=== PATIENT | male | born 1950 | race Caucasian/White ===

== ENCOUNTER 2016-10-14 16:22 | Emergency (ER) | payer MEDICARE, BC ==
[~2016-10-14] VITALS: Ht 182.9 cm; Wt 100.0 kg
[~2016-10-14 16:22] MED LIST: AUGMENTIN500TAB PO; DICLOXACILL500 MG PO; FLUOROURACIL51 EX; HYDROCO/APAP1 T10 PO; LISINOPRIL10 MG PO; LORTAB 7.5 PO; LORTAB 7.57.5 MG PO; LOTRISONE TOP; METOPROL TAR100 MG; METOPROL TAR100 MG PO; METOPROL TAR50 MG PO; METOPROLOL TART50 MG PO; PANTOPRAZOLE SO40 MG PO; TRAMADOL HCL50 MG PO; TYLENOL # 31 TA1 PO; ZPAK PO
[2016-10-14] MEDS ORDERED: CLOPIDOGREL75 MG PO (17:34)
[2016-10-14] MEDS ORDERED: TAMSULOSIN0.4 MG PO (17:34)
[2016-10-14] MEDS ORDERED: ATORVASTATIN CA20 MG PO (17:34)
[2016-10-14] MEDS ORDERED: ASPIRIN81 MG PO (17:35)
[2016-10-14] MEDS ORDERED: AMLODIPINE5 MG PO (17:35)
[2016-10-14] MEDS ORDERED: CARVEDILOL25 MG PO (17:35)
[2016-10-14 17:42] LABS: HEMATOCRIT 40.1 % (39.0-50.0); HEMOGLOBIN 13.5 g/dl (14.0-18.0); IMMATURE GRANULOCYTES 0.4 % (0.0-1.0); MEAN CELL VOLUME 83.9 fL CALC (80.0-100.0); MEAN CORPUSCULAR HGB 28.2 pG CALC (26.0-32.0); MEAN CORPUSCULAR HGB CONC 33.7 g/L CALC (32.0-36.0); NEUT# 5.65 thou/uL (1.82-7.42); RED BLOOD COUNT 4.78 mill/uL (4.70-6.10); RED CELL DISTRI WIDTH 13.7 % (11.5-15.5)
[2016-10-14 17:55] LABS: INTERNATIONAL NORMALIZED RATIO 1.1 RATIO (0.7-1.3); PROTHROMBIN TIME 11.9 SECONDS (9.0-12.5)
[2016-10-14 18:05] LABS: ALBUMIN 3.6 g/dL (3.2-5.0); ALKALINE PHOSPHATASE 70 u/l (38-126); ANION GAP 14 (6-22 (CALC)); BILIRUBIN, TOTAL 0.8 mg/dL (0.0-1.4); BUN 17 mg/dL (8-23); BUN/CREATININE RATIO 17 (12-20 (CALC)); CALCIUM 8.9 mg/dL (8.4-10.2); CARBON DIOXIDE 24 mmol/l (22-30); CHLORIDE 101 mmol/l (95-108); GFR > 60 ML/MIN (>=60 (CALC)); GFR FOR AFR.AMER. > 60 ML/MIN (>=60 (CALC)); GLUCOSE 130 mg/dL (82-115); POTASSIUM 3.9 mmol/l (3.5-5.1); SGOT/AST 43 u/l (19-48); SGPT/ALT 64 u/l (11-66); SODIUM 135 mmol/l (137-146); TOTAL PROTEIN 6.7 g/dL (6.3-8.2)
[2016-10-14 18:36] LABS: MYOGLOBIN 65 ng/mL (0 - 121)
[2016-10-14 19:30] VITALS: BP 104/71
== END 2016-10-14 19:33 | disposition home or self-care (01) ==
LOC: ED 16:22
PROVIDERS: Emergency Medicine
DX: R06.02 Shortness of breath (principal); R53.1 Weakness; I25.10 Atherosclerotic heart disease of native coronary artery without angina pectoris; I10 Essential (primary) hypertension; I25.2 Old myocardial infarction; Z95.5 Presence of coronary angioplasty implant and graft; R68.83 Chills (without fever); R11.0 Nausea

== ENCOUNTER 2017-03-20 20:37 | Emergency (ER) | payer MEDICARE, BC ==
[~2017-03-20] VITALS: Ht 182.9 cm; Wt 100.4 kg
[~2017-03-20 20:37] MED LIST changes: +AMLODIPINE5 MG PO; +ASPIRIN81 MG PO; +ATORVASTATIN CA20 MG PO; +CARVEDILOL25 MG PO; +CLOPIDOGREL75 MG PO; +TAMSULOSIN0.4 MG PO
[2017-03-20] MEDS ORDERED: KEFLEX500 MG PO (22:47)
[2017-03-20 23:00] VITALS: BP 126/74
== END 2017-03-20 23:00 | disposition left against medical advice (07) ==
LOC: ED 20:37
DX: M79.642 Pain in left hand (principal); S61.032A Puncture wound without foreign body of left thumb without damage to nail, initial encounter; R22.32 Localized swelling, mass and lump, left upper limb; W26.8XXA Contact with other sharp object(s), not elsewhere classified, initial encounter; Y93.9 Activity, unspecified; Y92.009 Unspecified place in unspecified non-institutional (private) residence as the place of occurrence of the external cause

== ENCOUNTER 2020-01-18 18:27 | Emergency (ER) | payer MEDICARE, BC ==
[~2020-01-18] VITALS: Ht 182.9 cm; Wt 102.0 kg
[~2020-01-18 18:27] MED LIST changes: +KEFLEX500 MG PO
[2020-01-18 19:34] VITALS: BP 117/89
== END 2020-01-18 19:43 | disposition home or self-care (01) ==
LOC: ED 18:27
DX: G89.29 Other chronic pain (principal); M25.511 Pain in right shoulder; I10 Essential (primary) hypertension; Z79.891 Long term (current) use of opiate analgesic

== ENCOUNTER 2020-04-10 15:25 | Emergency (ER) | payer MEDICARE, BC ==
[~2020-04-10] VITALS: Ht 182.9 cm; Wt 102.0 kg
[2020-04-10] MEDS ORDERED: KEFLEX500 M1 PO ×3 (16:28→16:50)
[2020-04-10 16:45] VITALS: BP 179/79
== END 2020-04-10 16:54 | disposition home or self-care (01) ==
LOC: ED 15:25
PROC: 0HQLXZZ Repair Left Lower Leg Skin, External Approach (ICD-10-PCS; principal; 2020-04-10)
DX: S81.812A Laceration without foreign body, left lower leg, initial encounter (principal); I10 Essential (primary) hypertension; W22.8XXA Striking against or struck by other objects, initial encounter; Y92.009 Unspecified place in unspecified non-institutional (private) residence as the place of occurrence of the external cause

== ENCOUNTER 2022-08-11 19:02 | Observation (INO) | payer MEDICARE, BC ==
[2022-08-11] VITALS (13 sets, daily range): BP systolic 82–108; BP diastolic 52–67
[~2022-08-11] VITALS: Ht 182.9 cm; Wt 85.8 kg
[~2022-08-11 19:02] MED LIST changes: +KEFLEX500 M1 PO
[2022-08-11 20:09] LABS: BASO% 0.4 % (0-3); EOS% 7.3 % (0-8); HEMATOCRIT 30.4 % (39.0-50.0); HEMOGLOBIN 9.5 g/dl (14.0-18.0); IMMATURE GRANULOCYTES 0.3 % (0.0-5.0); LYMPH% 12.7 % (15-41); MEAN CELL VOLUME 89.9 fL CALC (80.0-100.0); MEAN CORPUSCULAR HGB 28.1 pG CALC (26.0-32.0); MEAN CORPUSCULAR HGB CONC 31.3 g/dL CAL (32.0-36.0); MONO% 9.3 % (2-13); NEUT# 6.37 thou/uL (1.82-7.42); RED BLOOD COUNT 3.38 mill/uL (4.70-6.10); RED CELL DISTRI WIDTH 14.4 % (11.5-15.5)
[2022-08-11 20:21] LABS: BILIRUBIN, TOTAL 0.4 mg/dL (0.2-1.3); CREATININE 1.7 mg/dL (0.7-1.3); POTASSIUM 4.3 mmol/l (3.5-5.1); TOTAL PROTEIN 7.5 g/dL (6.3-8.2)
[2022-08-11] MEDS ORDERED: FUROSEMIDE20 MG PO (21:19)
[2022-08-11] MEDS ORDERED: METFORMIN HCL500 M2 PO (21:19)
[2022-08-11] MEDS ORDERED: SPIRONOLACTONE25 MG PO (21:20)
[2022-08-11] MEDS ORDERED: OXYCODONE20 M1 PO (21:21)
[2022-08-11 21:51] LABS: URINE BILIRUBIN - DIPSTICK NEGATIVE (NEGATIVE); URINE BLOOD DIPSTICK NEGATIVE (NEGATIVE); URINE COLOR YELLOW; URINE GLUCOSE - DIPSTICK NEGATIVE (NEGATIVE); URINE KETONE NEGATIVE (NEGATIVE); URINE LEUK ESTERASE NEGATIVE (NEGATIVE); URINE PH 5.5 (4.5-8.0); URINE PROTEIN - DIPSTICK NEGATIVE (NEG-TRACE); URINE UROBILINOGEN - DIPSTICK 0.2 E.U./dL (0.2)
[2022-08-11 21:53] LABS: URINE NITRITE - DIPSTICK NEGATIVE (Negative)
[2022-08-12 00:12] VITALS: BP 99/63
[2022-08-12 04:00] VITALS: BP 88/72; BP 99/63
[2022-08-12 06:53] VITALS: BP 91/50
[2022-08-12 11:36] VITALS: BP 106/64
[2022-08-12 14:33] VITALS: BP 103/68
[2022-08-12 19:03] VITALS: BP 109/63
[2022-08-13] VITALS (7 sets, daily range): BP systolic 104–117; BP diastolic 56–72
[2022-08-13 05:47] LABS: BASO% 0.1 % (0-3); EOS% 9.9 % (0-8); HEMOGLOBIN 7.8 g/dl (14.0-18.0); IMMATURE GRANULOCYTES 0.3 % (0.0-5.0); LYMPH% 14.2 % (15-41); MEAN CELL VOLUME 90.9 fL CALC (80.0-100.0); MEAN CORPUSCULAR HGB 28.4 pG CALC (26.0-32.0); MEAN CORPUSCULAR HGB CONC 31.2 g/dL CAL (32.0-36.0); MONO% 9.6 % (2-13); NEUT# 4.43 thou/uL (1.82-7.42); NEUT% 65.9 % (42-76); RED BLOOD COUNT 2.75 mill/uL (4.70-6.10); RED CELL DISTRI WIDTH 14.6 % (11.5-15.5)
[2022-08-13 07:07] LABS: ALBUMIN 2.6 g/dL (3.2-5.0); ALKALINE PHOSPHATASE 55 u/l (38-126); ANION GAP 9 (6-22 (CALC)); BUN 14 mg/dL (8-23); BUN/CREATININE RATIO 18 (12-20 (CALC)); CARBON DIOXIDE 21 mmol/l (22-30); CHLORIDE 112 mmol/l (95-108); CREATININE 0.8 mg/dL (0.7-1.3); GFR FOR AFR.AMER. > 60 ML/MIN (>=60 (CALC)); GFR OTHER RACES > 60 ML/MIN (>=60 (CALC)); SGOT/AST 19 u/l (19-48); SODIUM 137 mmol/l (137-146); TOTAL PROTEIN 5.1 g/dL (6.3-8.2)
[2022-08-14] VITALS (8 sets, daily range): BP systolic 101–123; BP diastolic 59–71
[2022-08-14 05:56] LABS: BASO% 0.3 % (0-3); EOS% 7.5 % (0-8); HEMATOCRIT 29.2 % (39.0-50.0); HEMOGLOBIN 9.1 g/dl (14.0-18.0); IMMATURE GRANULOCYTES 0.4 % (0.0-5.0); MEAN CELL VOLUME 91.5 fL CALC (80.0-100.0); MEAN CORPUSCULAR HGB 28.5 pG CALC (26.0-32.0); MEAN CORPUSCULAR HGB CONC 31.2 g/dL CAL (32.0-36.0); MONO% 8.6 % (2-13); NEUT# 7.19 thou/uL (1.82-7.42); NEUT% 73.2 % (42-76); RED BLOOD COUNT 3.19 mill/uL (4.70-6.10); RED CELL DISTRI WIDTH 14.6 % (11.5-15.5)
[2022-08-14 06:30] LABS: ALKALINE PHOSPHATASE 68 u/l (38-126); ANION GAP 11 (6-22 (CALC)); BUN 11 mg/dL (8-23); BUN/CREATININE RATIO 15 (12-20 (CALC)); CARBON DIOXIDE 22 mmol/l (22-30); CHLORIDE 106 mmol/l (95-108); CREATININE 0.7 mg/dL (0.7-1.3); GFR FOR AFR.AMER. > 60 ML/MIN (>=60 (CALC)); GFR OTHER RACES > 60 ML/MIN (>=60 (CALC)); POTASSIUM 3.7 mmol/l (3.5-5.1); SGOT/AST 17 u/l (19-48); SODIUM 136 mmol/l (137-146); TOTAL PROTEIN 6.1 g/dL (6.3-8.2)
[2022-08-14 06:32] LABS: ALBUMIN 3.2 g/dL (3.2-5.0); BILIRUBIN, TOTAL 0.2 mg/dL (0.2-1.3)
== END 2022-08-14 18:08 | disposition home or self-care (01) ==
LOC: ED 19:02 → ED-I 22:40 → ED 22:59 → MS2 23:00
PROVIDERS: Emergency Medicine; ADMIT Internal Medicine; ATTEND Internal Medicine
DX: E86.0 Dehydration (principal); I95.9 Hypotension, unspecified; N17.9 Acute kidney failure, unspecified; I11.0 Hypertensive heart disease with heart failure; I50.9 Heart failure, unspecified; E11.9 Type 2 diabetes mellitus without complications; D64.9 Anemia, unspecified; E78.5 Hyperlipidemia, unspecified; G89.29 Other chronic pain; Z79.891 Long term (current) use of opiate analgesic; Z79.84 Long term (current) use of oral hypoglycemic drugs; Z20.822 Contact with and (suspected) exposure to COVID-19

== ENCOUNTER 2024-03-27 19:12 | Emergency (ER) | payer MEDICARE, BC ==
[2024-03-27] VITALS (8 sets, daily range): BP systolic 118–138; BP diastolic 63–98
[~2024-03-27] VITALS: Ht 182.9 cm; Wt 70.0 kg
[~2024-03-27 19:12] MED LIST changes: +ALDACTONE25 MG PO; +CLOTRIMAZOLE13 EX; +COQ-10100 MG PO; +COREG25 MG PO; +FUROSEMIDE20 MG PO; +METFORMIN HCL500 M2 PO; +METFORMIN500 M2 PO; +MILK THISTLE500 M1 PO; +MUPIROCIN2 % EX; +NITROGLYCERIN0.4 MG; +NORVASC PO; +OXYCODONE20 M1 PO; +PAPAYA100 MG PO; +ROXICODONE15 M1 PO; +SAW PALMETTO1 CAP; +SPIRONOLACTONE25 MG PO; +TAMSULOSIN HCL0.4 MG PO; +TIZANIDINE4 MG PO; +TURMERI1 PO; +VITAMIN D31000 UNI1 PO; +VITAMIN E100 UNI2 PO
[2024-03-27] MEDS ORDERED: CEPHALEXIN MONOHYDRATE 500 MG/CAP PO ONE (19:50)
[2024-03-27] MEDS ORDERED: Diph, Acellular Pertussis, Tet 0.5 ML/VIAL (Tdap) SDV IM ONE (19:50)
[2024-03-27] MEDS ORDERED: NEOMYCIN-BACITRACIN-POLYMYXIN 0.5 GM/PAK PAK TOP ONE (19:50)
[2024-03-27] MEDS ORDERED: KEFLEX500 MG PO (19:53)
== END 2024-03-27 20:58 | disposition home or self-care (01) ==
LOC: ED 19:12
DX: S81.812A Laceration without foreign body, left lower leg, initial encounter (principal); I10 Essential (primary) hypertension; W22.09XA Striking against other stationary object, initial encounter

== ENCOUNTER 2024-06-14 10:13 | Observation (INO) | payer MEDICARE, BC ==
[~2024-06-14] VITALS: Ht 182.9 cm; Wt 85.0 kg
[2024-06-14] MEDS ORDERED: AZITHROMYCIN 250 MG/TAB PO ONE (10:25)
[2024-06-14] MEDS ORDERED: methylPREDNISolone SODIUM SUCC 125 MG/2 ML SDV IM ONE (10:25)
[2024-06-14] MEDS ORDERED: cefTRIAXone SODIUM 2 GM in SODIUM CHLORIDE 0.9% 100 ML IV ONE (10:25)
[2024-06-14] MEDS ORDERED: IPRATROPIUM-Albuterol 0.5MG-2.5MG/3 ML NEB ONE ×3 (10:25→14:35)
[2024-06-14 11:00] LABS: BASO% 0.2 % (0-3); EOS% 0.5 % (0-8); HEMATOCRIT 43.1 % (39.0-50.0); HEMOGLOBIN 13.5 g/dl (14.0-18.0); IMMATURE GRANULOCYTES 0.1 % (0.0-5.0); LYMPH% 6.4 % (15-41); MEAN CORPUSCULAR HGB 25.4 pG CALC (26.0-32.0); MEAN CORPUSCULAR HGB CONC 31.3 g/dL CAL (32.0-36.0); NEUT# 7.15 thou/uL (1.82-7.42); NEUT% 85.8 % (42-76); RED BLOOD COUNT 5.32 mill/uL (4.70-6.10)
[2024-06-14 11:14] LABS: ALBUMIN 4.5 g/dL (3.2-5.0); ALKALINE PHOSPHATASE 81 u/l (38-126); ANION GAP 17 (6-22 (CALC)); BILIRUBIN, TOTAL 0.7 mg/dL (0.2-1.3); BUN 15 mg/dL (8-23); BUN/CREATININE RATIO 18 (12-20 (CALC)); CARBON DIOXIDE 23 mmol/l (22-30); CHLORIDE 98 mmol/l (95-108); CREATININE 0.8 mg/dL (0.7-1.3); ESTIMATED GFR 92 ML/MIN (>=90 (CALC)); POTASSIUM 4.7 mmol/l (3.5-5.1); SGOT/AST 33 u/l (19-48); SODIUM 133 mmol/l (137-146); TOTAL PROTEIN 8.2 g/dL (6.3-8.2)
[2024-06-14] MEDS ORDERED: ONDANSETRON HCl 4 MG/2 ML SDV IV ONE (11:30)
[2024-06-14] MEDS ORDERED: MORPHINE SULFATE 4 MG/ML VIAL IV ONE (11:30)
[2024-06-14] MEDS ORDERED: Iopamidol 370 (Isovue) 76% 100 ML SDV IV ONE (11:30)
[2024-06-14] MEDS ORDERED: ACETAMINOPHEN 325 MG/TAB PO PRN (17:00)
[2024-06-14] MEDS ORDERED: MAGNESIUM HYDROXIDE 30 ML UDC PO PRN (17:00)
--- NOTE | 2024-06-14 17:34 | NUR ---
600ml- urine output
--- NOTE | 2024-06-14 18:03 | NUR ---
report given to Liz badillo
--- NOTE | 2024-06-14 18:04 | NUR ---
report given to Med surg Nurse
--- NOTE | 2024-06-14 18:24 | NUR ---
PT ADMITTED TO [facility] VIA WHEELCHAIR WITH ER STAFF AT SIDE, PT ABLE TO STAND AND TRANSFER TO BED WITH STEADY GAIT, HISTOLOGY ASSISTANT IN PLACE, PT STATES FEELINGMUCH BETTER THAN ON ARRIVAL, ORIENTED TO ROOM, UNIT, CALL WEINSTEIN SYSTEM AND SAFETY MEASURES, VERBALIZES UNDERSTANDING AND COMPLIANCY. CALL WEINSTEIN WITHIN REACH.
[2024-06-14] MEDS ORDERED: IPRATROPIUM-Albuterol 0.5MG-2.5MG/3 ML NEB SCH (19:00)
[2024-06-14 20:14] VITALS: BP 120/66
[2024-06-14] MEDS ORDERED: oxyCODONE HCL 15 MG/TAB PO SCH (20:30)
[2024-06-14] MEDS ORDERED: methylPREDNISolone Sod Succ 40 MG/ML SDV IV SCH (21:00)
[2024-06-14] MEDS ORDERED: ENOXAPARIN SODIUM 40 MG/0.4 ML SYR SC SCH (21:00)
[2024-06-14] MEDS ORDERED: Zaleplon 5 MG/CAP PO SCH (21:00)
--- NOTE | 2024-06-14 22:00 | NUR ---
PT MEDICATED FOR PAIN AND GIVEN SLEEPING MEDICATION. CONTINUES TO WALK AROUND THE ROOM AND PLAY WITH THE TELEMETRY BOX. PT EDUCATED ON NEED FOR REST WHEN SICK.
[2024-06-14] MEDS ORDERED: GUAIFENESIN 200 MG/10 ML UDC PO PRN (23:25)
[2024-06-15 00:08] VITALS: BP 105/65
--- NOTE | 2024-06-15 03:10 | NUR ---
PT AWAKE AND WALKING AROUND IN ROOM FIDGETING WITH THINGS. STILL PULLING AT TELEMETRY WIRES. RN HELPED PT INTO BED AND TURNED OUT LIGHTS AND TURNED OFF TELEVISION, PT STATED HE WAS READY TO SLEEP. UPON CHECKING ON PT 15 MINUTES LATER, TELEVISION AND LIGHTS BACK ON AND PT WALKING AROUND THE ROOM AGAIN.
[2024-06-15 04:23] VITALS: BP 106/57
[2024-06-15 05:15] LABS: HEMATOCRIT 41.4 % (39.0-50.0); HEMOGLOBIN 12.9 g/dl (14.0-18.0); IMMATURE GRANULOCYTES 0.2 % (0.0-5.0); LYMPH% 6.9 % (15-41); MEAN CELL VOLUME 80.7 fL CALC (80.0-100.0); MEAN CORPUSCULAR HGB 25.1 pG CALC (26.0-32.0); MEAN CORPUSCULAR HGB CONC 31.2 g/dL CAL (32.0-36.0); MONO% 3.9 % (2-13); NEUT# 5.93 thou/uL (1.82-7.42); RED BLOOD COUNT 5.13 mill/uL (4.70-6.10)
[2024-06-15 05:32] LABS: ALBUMIN 3.8 g/dL (3.2-5.0); CREATININE 0.8 mg/dL (0.7-1.3); MAGNESIUM 2.3 mg/dL (1.6-2.3); POTASSIUM 4.3 mmol/l (3.5-5.1); TOTAL PROTEIN 6.9 g/dL (6.3-8.2)
[2024-06-15 05:35] LABS: BILIRUBIN, TOTAL 0.4 mg/dL (0.2-1.3)
[2024-06-15 07:10] VITALS: BP 174/91
--- NOTE | 2024-06-15 07:17 | NUR ---
SHIFT CHANGE REPORT, PT AWAKE ALERT AND ORIENTED SITTING UP AT BEDSIDE HYPERVENTILATING AT THIS TIME AND C/O DIFFICULTY BREATHING, RESP THERAPIST NOTIFIED AND IS HERE GIVING TREATMENT AT THIS TIME. O2 @ 2L IN PLACE VIA NC, COUGHING (NON-PRODUCTIVE), TELE MONITOR IN PLACE, CALL WEINSTEIN IN REACH AND BED LOCKED IN LOWEST POSITION.
--- NOTE | 2024-06-15 08:00 | NUR ---
PT REPORTS FEELING MUCH BETTER AFTER BREATHING TREATMENT, SITTING UP AT BEDSIDE.
[2024-06-15] MEDS ORDERED: oxyCODONE HCL 15 MG/TAB PO PRN (09:05)
[2024-06-15] MEDS ORDERED: CLOPIDOGREL BISULFATE 75 MG/TAB TAB PO SCH (09:30)
[2024-06-15] MEDS ORDERED: LORazepam 0.5 MG/TAB PO SCH (09:30)
[2024-06-15] MEDS ORDERED: BUPRENORPHINE HCL SL SCH (09:30)
[2024-06-15 11:13] VITALS: BP 112/67
[2024-06-15] MEDS ORDERED: DEXTROMETHORPHAN-Guaifenesin 20-200 MG/10 ML UDC PO PRN (12:20)
[2024-06-15] MEDS ORDERED: hydrALAZINE HCL 20 MG/ML VIAL(1 ML) IV PRN (12:45)
[2024-06-15] MEDS ORDERED: SPIRONOLACTONE 25 MG/TAB PO SCH (13:30)
[2024-06-15] MEDS ORDERED: TAMSULOSIN HCL 0.4 MG CAP PO SCH (13:30)
[2024-06-15] MEDS ORDERED: amLODIPine BESYLATE 5 MG/TAB PO SCH (13:30)
[2024-06-15 15:26] VITALS: BP 109/71
--- NOTE | 2024-06-15 16:31 | NUR ---
FEELING MUCH BETTER AT THIS TIME, RESTING IN BED AND WATCHING TV.
[2024-06-15] MEDS ORDERED: metFORMIN HYDROCHLORIDE 500 MG/TAB PO SCH (17:00)
[2024-06-15 18:41] VITALS: BP 115/66
[2024-06-15] MEDS ORDERED: ATORVASTATIN CALCIUM 20 MG/TAB PO SCH (21:00)
[2024-06-16] VITALS (7 sets, daily range): BP systolic 97–137; BP diastolic 47–76
[2024-06-16 05:44] LABS: HEMATOCRIT 40.5 % (39.0-50.0); HEMOGLOBIN 12.8 g/dl (14.0-18.0); IMMATURE GRANULOCYTES 0.2 % (0.0-5.0); LYMPH% 4.8 % (15-41); MEAN CELL VOLUME 80.8 fL CALC (80.0-100.0); MEAN CORPUSCULAR HGB 25.5 pG CALC (26.0-32.0); MEAN CORPUSCULAR HGB CONC 31.6 g/dL CAL (32.0-36.0); MONO% 2.9 % (2-13); NEUT# 11.25 thou/uL (1.82-7.42); NEUT% 92.1 % (42-76); RED BLOOD COUNT 5.01 mill/uL (4.70-6.10); RED CELL DISTRI WIDTH 16.9 % (11.5-15.5)
[2024-06-16 06:05] LABS: ALBUMIN 3.8 g/dL (3.2-5.0); BILIRUBIN, TOTAL 0.4 mg/dL (0.2-1.3); CREATININE 0.7 mg/dL (0.7-1.3); MAGNESIUM 2.6 mg/dL (1.6-2.3); POTASSIUM 4.7 mmol/l (3.5-5.1); TOTAL PROTEIN 6.8 g/dL (6.3-8.2)
--- NOTE | 2024-06-16 07:47 | NUR ---
SHFIT CHANGE REPORT, PT AWAKE ALERT AND ORIENTED SITTING UP AT BEDSIDE, COUGHING AT THIS TIME, O2 @ 2L VIA NC IN PLACE HOWEVER, RESPIRATORY THERAPIST JUST CAME IN AND GAVE TREATMENT, REMOVED O2 AND GAVE INCENTIVE SPIROMETER. TELE MONITOR IN PLACE AND CALL WEINSTEIN IN REACH.
[2024-06-16] MEDS ORDERED: BISACODYL 10 MG SUPP RE PRN (09:30)
[2024-06-16] MEDS ORDERED: Polyethylene Glycol 3350 17 GM/PKT PO SCH (09:30)
--- NOTE | 2024-06-16 12:00 | NUR ---
PT REQUESTING LAXATIVE STATING MOM HAS NOT BEEN EFFECTIVE, SALES MERCHANDISING SPECIALIST NOTIFIED AND WROTE ORDERS.
--- NOTE | 2024-06-16 16:00 | NUR ---
PT REPORTING MIRALAS HAS NOT BEEN EFFECTIVE AND WANTS ANOTHER LAXATIVE OR SOMETHING ELSE TO MAKE HIM HAVE A BM, SUPPOSITORY GIVEN ORDERED.
--- NOTE | 2024-06-16 17:00 | NUR ---
EPISODES OF COUGHING CONTINUES BUT FREQUENT THEY WERE BEFORE, COUGH MED GIVEN WHICH PT REPORTS IS EFFECTIVE.
--- NOTE | 2024-06-16 19:45 | NUR ---
P IS ALERT AND ORIENTED WATCHING TV AT THIS TIME. NO SIGNS OF DISTRESS NOTED, RESPS ARE EVEN AND UNLABORED. LUNG SOUNDS ARE CLEAR TO AUSCULTATION BILATERLLAY. INCENTIVE SPIROMETER ON THE SIDE PT STATED HE IS BEEN USING IT EVERY HOUR. SKIN IS WARMTH AND DRY. SCRATCHES NOTED ON LEGS BILLATERALLY. TELE MONITOR #1 SAHOWING [id number] AT THIS TIME. 20 G IV RAC FLUSHED WITH 5 CC-LOOKS CLEAN AND INATCT. CALL LIGHT IN REACH AND SAFETY PRECAUTION ON PLACE
--- NOTE | 2024-06-17 00:09 | NUR ---
PT SITTING UP ON BED RECEIVING BREATHING TREATMENT AT THI TIME. DENIES ANY NEEDS. NO SIGNS OF ANY DISTRESS. CALL LIGHT IN REACH AND SAFETY PRECAUTIONS ON PLACE
[2024-06-17 03:30] VITALS: BP 109/58
--- NOTE | 2024-06-17 04:36 | NUR ---
PT RESTING ON LEFT SIDE. BREATHING IS EVEN AND UNLABORED. NO SIGNS PF DISTRESS, TELE ON PLACE SHOWING [id number] AT THIS TIME. CALL LIGHT IN REACH AND SAFETY PRECAUTIONS ON PLACE.
[2024-06-17 05:33] LABS: BASO% 0.1 % (0-3); HEMATOCRIT 41.4 % (39.0-50.0); HEMOGLOBIN 12.9 g/dl (14.0-18.0); IMMATURE GRANULOCYTES 0.1 % (0.0-5.0); LYMPH% 6.5 % (15-41); MEAN CORPUSCULAR HGB 25.5 pG CALC (26.0-32.0); MEAN CORPUSCULAR HGB CONC 31.2 g/dL CAL (32.0-36.0); MONO% 3.1 % (2-13); NEUT# 8.72 thou/uL (1.82-7.42); NEUT% 90.2 % (42-76); RED BLOOD COUNT 5.05 mill/uL (4.70-6.10); RED CELL DISTRI WIDTH 17.1 % (11.5-15.5)
[2024-06-17 05:49] LABS: ALBUMIN 3.7 g/dL (3.2-5.0); BILIRUBIN, TOTAL 0.4 mg/dL (0.2-1.3); CREATININE 0.8 mg/dL (0.7-1.3); MAGNESIUM 2.4 mg/dL (1.6-2.3); TOTAL PROTEIN 6.8 g/dL (6.3-8.2)
[2024-06-17 07:01] VITALS: BP 114/69
--- NOTE | 2024-06-17 07:07 | NUR ---
PT IS AOX4, RESPIRATIONS ARE EVEN AND UNLABORED, CURRENTLY RECIEVING NEB TX.
--- NOTE | 2024-06-17 08:06 | NUR ---
DR MORENO AT BEDSIDE DISCUSSING PLAN OF CARE WITH PT AT THIS TIME.
--- NOTE | 2024-06-17 08:24 | NUR ---
WALKED PT ABOUT 30' PT MAINTAINED O2 AT 93% OR BETTER, HEART RATE WENT TO 129.
[2024-06-17] MEDS ORDERED: DOXYCYCLINE100 MG PO (09:26)
[2024-06-17] MEDS ORDERED: PREDNISONE10 MG PO (09:28)
[2024-06-17 10:55] VITALS: BP 130/77
--- NOTE | 2024-06-17 12:05 | NUR ---
REVIEWED DISCHARGE INSTRUCTIONS WITH PT. PT WAITING ON RIDE.
--- NOTE | 2024-06-17 12:49 | NUR ---
ANSWERED PT QUESTIONS, REMOVED TELE AND PLACED IT IN RETURN BIN AT NURSES STATION, REMOVED IV FOR DISCHARGE.
--- NOTE | 2024-06-17 12:50 | NUR ---
PT LEFT THE UNIT VIA WHEELCHAIR STAFF TRANSPORT WITH BELONGINGS IN HAND.
== END 2024-06-17 12:50 | disposition home health service (06) ==
LOC: ED 10:13 → ED-I 15:26 → ED 15:38 → MS2 15:39
PROVIDERS: Family Medicine; Nurse Practitioner Family; ADMIT Internal Medicine; ATTEND Internal Medicine
DX: J44.1 Chronic obstructive pulmonary disease with (acute) exacerbation (principal); J96.01 Acute respiratory failure with hypoxia; I10 Essential (primary) hypertension; E11.9 Type 2 diabetes mellitus without complications; I25.10 Atherosclerotic heart disease of native coronary artery without angina pectoris; E78.5 Hyperlipidemia, unspecified; M54.40 Lumbago with sciatica, unspecified side; Z95.5 Presence of coronary angioplasty implant and graft; Z79.891 Long term (current) use of opiate analgesic; Z79.02 Long term (current) use of antithrombotics/antiplatelets; Z20.822 Contact with and (suspected) exposure to COVID-19; Z79.84 Long term (current) use of oral hypoglycemic drugs
CPT/HCPCS: G0378; J0571; J0696; J1650; J2405; Q9967